=== PATIENT | male | born 1945 | race Caucasian/White ===

== ENCOUNTER 2016-04-25 12:30 | Inpatient (IN) | payer MEDICARE, MEDICAID ==
[~2016-04-25] VITALS: Ht 165.1 cm; Wt 88.7 kg
[2016-04-25 14:08] LABS: HEMOGLOBIN 11.3 gm/dl (14.0-17.5); RED BLOOD COUNT 3.76 M/UL (4.20-5.50); WHITE BLOOD COUNT 8.1 K/UL (4.5-11.0)
[2016-04-26] MEDS ORDERED: ASPIRIN CHEWABL81 MG PO (01:33)
[2016-04-26] MEDS ORDERED: COREG 25MG TAB25 MG PO (01:34)
[2016-04-26] MEDS ORDERED: LOSARTAN POTASS25 MG PO (01:34)
[2016-04-26] MEDS ORDERED: NEURONTIN 300300 MG PO (01:34)
[2016-04-26] MEDS ORDERED: IMDUR ER TAB 6060 MG PO (01:34)
[2016-04-26] MEDS ORDERED: PLAVIX 75 MG TA75 MG PO (01:35)
[2016-04-26] MEDS ORDERED: LIPITOR TAB 1010 MG PO (01:35)
[2016-04-26] MEDS ORDERED: JANUVIA 100 MG100 MG PO (01:36)
[2016-04-26] MEDS ORDERED: RANEXA1000 MG PO (01:36)
[2016-04-26] MEDS ORDERED: LANOXIN TAB0.125 MG PO (01:36)
[2016-04-26] MEDS ORDERED: LANTUS SOL100 UNIT/1 SQ (01:37)
[2016-04-26] MEDS ORDERED: NOVOLOG 10100 UNITS/ SQ (01:37)
[2016-04-26] MEDS ORDERED: LASIX 40 MG TAB40 MG PO (01:38)
[2016-04-26] MEDS ORDERED: PRILOSEC OTC20 MG PO (01:38)
[2016-04-26] MEDS ORDERED: VENTOLIN HFA 66.7 GM INH (01:39)
[2016-04-26] MEDS ORDERED: ALBUTEROL0.63 MG/3 INH (01:40)
[2016-04-26] MEDS ORDERED: NITROSTAT 0.4100 TAB SL (01:41)
[2016-04-27 04:58] LABS: HEMOGLOBIN 10.2 gm/dl (14.0-17.5); RED BLOOD COUNT 3.43 M/UL (4.20-5.50); WHITE BLOOD COUNT 6.5 K/UL (4.5-11.0)
--- NOTE | 2016-04-28 16:14 | NUR ---
REPORTED TO DR. SHETH PATIENT COMPLAINTS OF C/P, VITAL SIGNS WNL AND WITH RELIEF OF 1 PILL OF NITRO SL. ACKNOWLEDGED BUT WANTED TO BE NOTIFIED IF ANOTHER PATIENT WILL CONTINUE TO HAVE CHEST PAIN.
[2016-04-29 05:36] LABS: HEMOGLOBIN 10.6 gm/dl (14.0-17.5); RED BLOOD COUNT 3.53 M/UL (4.20-5.50); WHITE BLOOD COUNT 6.5 K/UL (4.5-11.0)
[2016-04-29 16:57] LABS: HEMOGLOBIN 10.6 gm/dl (14.0-17.5); RED BLOOD COUNT 3.53 M/UL (4.20-5.50); WHITE BLOOD COUNT 6.6 K/UL (4.5-11.0)
[2016-04-30 03:51] LABS: HEMOGLOBIN 9.8 gm/dl (14.0-17.5); RED BLOOD COUNT 3.3 M/UL (4.20-5.50); WHITE BLOOD COUNT 7.3 K/UL (4.5-11.0)
[2016-04-30] MEDS ORDERED: PEPCID40 MG PO (12:29)
[2016-09-04] MEDS ORDERED: ENTRESTO PO (11:35)
[2016-09-04] MEDS ORDERED: BIAXIN500 MG PO (11:36)
[2016-09-04] MEDS ORDERED: HYDRALAZINE HCL25 MG PO (11:36)
[2016-09-04] MEDS ORDERED: PROTONIX40 MG PO (11:36)
[2016-09-04] MEDS ORDERED: AMOXICILLIN500 MG PO (11:37)
[2016-09-04] MEDS ORDERED: NORCO 5-325 TA1 EACH PO (11:38)
[2016-09-05] MEDS ORDERED: LEVAQUIN750 MG PO (13:46)
[2016-09-05] MEDS ORDERED: LANTUS100 UNIT/1 SQ (13:46)
== END 2016-04-30 13:04 | disposition home or self-care (01) | DRG 247 ==
LOC: ER1 12:30 → ZEROF 21:52 → M/S 21:52 → PROG CARE 04-27 15:19
PROVIDERS: Internal Medicine; Physician Assistant; Physician Assistant Surgical; Student in an Organized Health Care Education/Training Program; ADMIT Internal Medicine
PROC: B2111ZZ Fluoroscopy of Multiple Coronary Arteries using Low Osmolar Contrast (ICD-10-PCS; principal; 2016-04-29)
PROC: 027034Z Dilation of Coronary Artery, One Artery with Drug-eluting Intraluminal Device, Percutaneous Approach (ICD-10-PCS; principal; 2016-04-29)
PROC: 4A023N7 Measurement of Cardiac Sampling and Pressure, Left Heart, Percutaneous Approach (ICD-10-PCS; principal; 2016-04-29)
DX: I25.710 Atherosclerosis of autologous vein coronary artery bypass graft(s) with unstable angina pectoris (principal); I50.22 Chronic systolic (congestive) heart failure; I25.5 Ischemic cardiomyopathy; E11.22 Type 2 diabetes mellitus with diabetic chronic kidney disease; I12.9 Hypertensive chronic kidney disease with stage 1 through stage 4 chronic kidney disease, or unspecified chronic kidney disease; N18.3 Chronic kidney disease, stage 3 (moderate); I25.82 Chronic total occlusion of coronary artery; I73.9 Peripheral vascular disease, unspecified; D64.9 Anemia, unspecified; E78.5 Hyperlipidemia, unspecified; I27.2 Other secondary pulmonary hypertension; J44.9 Chronic obstructive pulmonary disease, unspecified; R06.02 Shortness of breath; G47.33 Obstructive sleep apnea (adult) (pediatric); Z87.891 Personal history of nicotine dependence; Z79.4 Long term (current) use of insulin; Z95.5 Presence of coronary angioplasty implant and graft; Z95.1 Presence of aortocoronary bypass graft; Z88.8 Allergy status to other drugs, medicaments and biological substances; Z79.82 Long term (current) use of aspirin; Z79.51 Long term (current) use of inhaled steroids; Z79.52 Long term (current) use of systemic steroids; Z79.899 Other long term (current) drug therapy
CPT/HCPCS: ECHO; 36415; 71020; 78452; 80048; 80053; 80061; 80162; 82550; 82553; 82962; 83036; 83874; 83880; 84484; 85025; 85027; 85347; 93005; 93017; 93306; 94640; 94664; 99285; A9502; C1725; C1769; C1874; C1887; C9600; G0378; J0461; J0583; J1644; J2250; J2785; J3010; J7030; J7040; Q9965

== ENCOUNTER 2016-05-13 17:47 | Inpatient (IN) | payer MEDICARE, MEDICAID ==
[~2016-05-13] VITALS: Ht 165.1 cm; Wt 91.3 kg
[~2016-05-13 17:47] MED LIST: ALBUTEROL0.63 MG/3 INH; ASPIRIN CHEWABL81 MG PO; COREG 25MG TAB25 MG PO; IMDUR ER TAB 6060 MG PO; JANUVIA 100 MG100 MG PO; LANOXIN TAB0.125 MG PO; LANTUS SOL100 UNIT/1 SQ; LASIX 40 MG TAB40 MG PO; LIPITOR TAB 1010 MG PO; LOSARTAN POTASS25 MG PO; NEURONTIN 300300 MG PO; NITROSTAT 0.4100 TAB SL; NOVOLOG 10100 UNITS/ SQ; PEPCID40 MG PO; PLAVIX 75 MG TA75 MG PO; PRILOSEC OTC20 MG PO; RANEXA1000 MG PO; VENTOLIN HFA 66.7 GM INH
[2016-05-13 19:34] LABS: HEMOGLOBIN 11.6 gm/dl (14.0-17.5); RED BLOOD COUNT 3.85 M/UL (4.20-5.50); WHITE BLOOD COUNT 8.4 K/UL (4.5-11.0)
[2016-05-14 05:32] LABS: HEMOGLOBIN 10.5 gm/dl (14.0-17.5); RED BLOOD COUNT 3.49 M/UL (4.20-5.50)
[2016-05-14 05:33] LABS: WHITE BLOOD COUNT 10.7 K/UL (4.5-11.0)
[2016-05-15 03:55] LABS: HEMOGLOBIN 9.9 gm/dl (14.0-17.5); RED BLOOD COUNT 3.34 M/UL (4.20-5.50); WHITE BLOOD COUNT 8.9 K/UL (4.5-11.0)
[2016-05-15 16:51] LABS: HEMOGLOBIN 9.9 gm/dl (14.0-17.5); RED BLOOD COUNT 3.31 M/UL (4.20-5.50); WHITE BLOOD COUNT 8.9 K/UL (4.5-11.0)
[2016-05-16 00:47] LABS: HEMOGLOBIN 9.5 gm/dl (14.0-17.5); RED BLOOD COUNT 3.16 M/UL (4.20-5.50); WHITE BLOOD COUNT 7.3 K/UL (4.5-11.0)
[2016-05-16 07:46] LABS: HEMOGLOBIN 9.2 gm/dl (14.0-17.5); RED BLOOD COUNT 3.02 M/UL (4.20-5.50)
[2016-05-17 03:50] LABS: HEMOGLOBIN 8.4 gm/dl (14.0-17.5); RED BLOOD COUNT 2.82 M/UL (4.20-5.50); WHITE BLOOD COUNT 5.6 K/UL (4.5-11.0)
[2016-09-04] MEDS ORDERED: ENTRESTO PO (11:35)
[2016-09-04] MEDS ORDERED: PROTONIX40 MG PO (11:36)
[2016-09-04] MEDS ORDERED: BIAXIN500 MG PO (11:36)
[2016-09-04] MEDS ORDERED: HYDRALAZINE HCL25 MG PO (11:36)
[2016-09-04] MEDS ORDERED: AMOXICILLIN500 MG PO (11:37)
[2016-09-04] MEDS ORDERED: NORCO 5-325 TA1 EACH PO (11:38)
[2016-09-05] MEDS ORDERED: LEVAQUIN750 MG PO (13:46)
[2016-09-05] MEDS ORDERED: LANTUS100 UNIT/1 SQ (13:46)
== END 2016-05-17 18:11 | disposition home or self-care (01) | DRG 271 ==
LOC: ER1 17:47 → PROG CARE 23:00 → ZEROF 23:00 → PROG CARE 05-14 21:21
PROVIDERS: Internal Medicine; Internal Medicine Infectious Disease; Physician Assistant; ADMIT Internal Medicine
PROC: 4A023N7 Measurement of Cardiac Sampling and Pressure, Left Heart, Percutaneous Approach (ICD-10-PCS; principal; 2016-05-14)
PROC: B2151ZZ Fluoroscopy of Left Heart using Low Osmolar Contrast (ICD-10-PCS; 2016-05-14)
PROC: B2111ZZ Fluoroscopy of Multiple Coronary Arteries using Low Osmolar Contrast (ICD-10-PCS; 2016-05-14)
PROC: B2121ZZ Fluoroscopy of Single Coronary Artery Bypass Graft using Low Osmolar Contrast (ICD-10-PCS; 2016-05-14)
PROC: 04CL3ZZ Extirpation of Matter from Left Femoral Artery, Percutaneous Approach (ICD-10-PCS; 2016-05-15)
PROC: 047L3Z1 Dilation of Left Femoral Artery using Drug-Coated Balloon, Percutaneous Approach (ICD-10-PCS; 2016-05-15)
PROC: B41D1ZZ Fluoroscopy of Aorta and Bilateral Lower Extremity Arteries using Low Osmolar Contrast (ICD-10-PCS; 2016-05-15)
DX: I21.4 Non-ST elevation (NSTEMI) myocardial infarction (principal); N17.9 Acute kidney failure, unspecified; I13.0 Hypertensive heart and chronic kidney disease with heart failure and stage 1 through stage 4 chronic kidney disease, or unspecified chronic kidney disease; I50.22 Chronic systolic (congestive) heart failure; I25.110 Atherosclerotic heart disease of native coronary artery with unstable angina pectoris; I25.720 Atherosclerosis of autologous artery coronary artery bypass graft(s) with unstable angina pectoris; I25.710 Atherosclerosis of autologous vein coronary artery bypass graft(s) with unstable angina pectoris; I70.212 Atherosclerosis of native arteries of extremities with intermittent claudication, left leg; N18.3 Chronic kidney disease, stage 3 (moderate); E87.5 Hyperkalemia; E11.65 Type 2 diabetes mellitus with hyperglycemia; E11.22 Type 2 diabetes mellitus with diabetic chronic kidney disease; I25.5 Ischemic cardiomyopathy; J44.9 Chronic obstructive pulmonary disease, unspecified; I27.2 Other secondary pulmonary hypertension; E78.5 Hyperlipidemia, unspecified; I65.22 Occlusion and stenosis of left carotid artery; I08.1 Rheumatic disorders of both mitral and tricuspid valves; D64.9 Anemia, unspecified; Z95.810 Presence of automatic (implantable) cardiac defibrillator; Z95.5 Presence of coronary angioplasty implant and graft; Z95.820 Peripheral vascular angioplasty status with implants and grafts; Z87.891 Personal history of nicotine dependence; Z79.4 Long term (current) use of insulin; Z79.84 Long term (current) use of oral hypoglycemic drugs; Z99.81 Dependence on supplemental oxygen; Z79.02 Long term (current) use of antithrombotics/antiplatelets; Z79.82 Long term (current) use of aspirin; Z79.899 Other long term (current) drug therapy; Z82.49 Family history of ischemic heart disease and other diseases of the circulatory system
CPT/HCPCS: 36245; 36415; 71010; 71250; 75630; 80048; 80053; 82550; 82553; 82803; 82962; 83605; 83874; 83880; 84484; 85025; 85027; 85347; 85379; 85610; 85730; 87040; 93005; 94640; 94664; 96372; 96374; 96375; 99291; C1714; C1769; C1887; C2623; J0583; J1644; J1815; J1817; J1940; J2250; J2270; J2930; J3010; J7030; J7040; Q9965

== ENCOUNTER → 2016-05-20 | Outpatient (CLI) | payer MEDICARE ==
[~2016-05-20] MED LIST changes: +AMOXICILLIN500 MG PO; +BIAXIN500 MG PO; +ENTRESTO PO; +HYDRALAZINE HCL25 MG PO; +LANTUS100 UNIT/1 SQ; +LEVAQUIN750 MG PO; +NORCO 5-325 TA1 EACH PO; +PROTONIX40 MG PO
[2016-05-20 12:13] LABS: HEMOGLOBIN 9.5 gm/dl (14.0-17.5); RED BLOOD COUNT 3.19 M/UL (4.20-5.50); WHITE BLOOD COUNT 6.7 K/UL (4.5-11.0)
== END ==
LOC: LAB 11:38
PROVIDERS: Internal Medicine
DX: Z01.810 Encounter for preprocedural cardiovascular examination (principal)
CPT/HCPCS: 36415; 80048; 85025; 85610; 85730; 93005

== ENCOUNTER 2016-05-22 08:48 | Outpatient (CLI) | payer MEDICARE ==
[~2016-05-22] VITALS: Ht 165.1 cm; Wt 91.0 kg
[~2016-05-22 08:48] MED LIST changes: -AMOXICILLIN500 MG PO; -BIAXIN500 MG PO; -ENTRESTO PO; -HYDRALAZINE HCL25 MG PO; -LANTUS100 UNIT/1 SQ; -LEVAQUIN750 MG PO; -NORCO 5-325 TA1 EACH PO; -PROTONIX40 MG PO
[2016-05-23 00:20] LABS: HEMOGLOBIN 9.8 gm/dl (14.0-17.5); RED BLOOD COUNT 3.33 M/UL (4.20-5.50); WHITE BLOOD COUNT 8.3 K/UL (4.5-11.0)
[2016-05-23 06:47] LABS: HEMOGLOBIN 8.9 gm/dl (14.0-17.5); RED BLOOD COUNT 3.02 M/UL (4.20-5.50); WHITE BLOOD COUNT 6.3 K/UL (4.5-11.0)
[2016-05-23 07:36] LABS: BUN/CREATININE RATIO 18 (0-10)
[2016-09-04] MEDS ORDERED: ENTRESTO PO (11:35)
[2016-09-04] MEDS ORDERED: BIAXIN500 MG PO (11:36)
[2016-09-04] MEDS ORDERED: HYDRALAZINE HCL25 MG PO (11:36)
[2016-09-04] MEDS ORDERED: PROTONIX40 MG PO (11:36)
[2016-09-04] MEDS ORDERED: AMOXICILLIN500 MG PO (11:37)
[2016-09-04] MEDS ORDERED: NORCO 5-325 TA1 EACH PO (11:38)
[2016-09-05] MEDS ORDERED: LANTUS100 UNIT/1 SQ (13:46)
[2016-09-05] MEDS ORDERED: LEVAQUIN750 MG PO (13:46)
== END 2016-05-23 11:25 | disposition home or self-care (01) ==
LOC: CATH 08:48 → PROG CARE 08:48 → CATH 10:00 → MED SURG 4 16:00 → PROG CARE 21:26 → CATH 05-23 11:25
PROVIDERS: Internal Medicine
DX: I70.212 Atherosclerosis of native arteries of extremities with intermittent claudication, left leg (principal); I13.0 Hypertensive heart and chronic kidney disease with heart failure and stage 1 through stage 4 chronic kidney disease, or unspecified chronic kidney disease; I50.43 Acute on chronic combined systolic (congestive) and diastolic (congestive) heart failure; N18.2 Chronic kidney disease, stage 2 (mild); E11.22 Type 2 diabetes mellitus with diabetic chronic kidney disease; I25.10 Atherosclerotic heart disease of native coronary artery without angina pectoris; I25.5 Ischemic cardiomyopathy; I65.29 Occlusion and stenosis of unspecified carotid artery; I44.7 Left bundle-branch block, unspecified; I25.2 Old myocardial infarction; Z95.1 Presence of aortocoronary bypass graft; Z95.810 Presence of automatic (implantable) cardiac defibrillator; Z95.5 Presence of coronary angioplasty implant and graft; J44.9 Chronic obstructive pulmonary disease, unspecified; E11.42 Type 2 diabetes mellitus with diabetic polyneuropathy; H04.129 Dry eye syndrome of unspecified lacrimal gland; Z79.899 Other long term (current) drug therapy; K64.4 Residual hemorrhoidal skin tags; E78.00 Pure hypercholesterolemia, unspecified; K64.8 Other hemorrhoids; G47.34 Idiopathic sleep related nonobstructive alveolar hypoventilation; Z87.891 Personal history of nicotine dependence; G47.33 Obstructive sleep apnea (adult) (pediatric); H40.009 Preglaucoma, unspecified, unspecified eye; H25.10 Age-related nuclear cataract, unspecified eye; Z98.62 Peripheral vascular angioplasty status; Z79.82 Long term (current) use of aspirin; Z79.4 Long term (current) use of insulin
CPT/HCPCS: 36415; 71010; 80048; 82962; 85027; 85347; 93005; 94640; 94664; C1769; C1876; C1887; C1894; J0461; J1644; J1940; J2250; J2270; J3010; J7030; Q9965

== ENCOUNTER 2016-06-01 20:54 | Emergency (ER) | payer MEDICARE ==
[2016-06-01 23:08] LABS: HEMOGLOBIN 11.5 gm/dl (14.0-17.5); RED BLOOD COUNT 3.89 M/UL (4.20-5.50); WHITE BLOOD COUNT 8.8 K/UL (4.5-11.0)
[2016-09-04] MEDS ORDERED: ENTRESTO PO (11:35)
[2016-09-04] MEDS ORDERED: BIAXIN500 MG PO (11:36)
[2016-09-04] MEDS ORDERED: HYDRALAZINE HCL25 MG PO (11:36)
[2016-09-04] MEDS ORDERED: PROTONIX40 MG PO (11:36)
[2016-09-04] MEDS ORDERED: AMOXICILLIN500 MG PO (11:37)
[2016-09-04] MEDS ORDERED: NORCO 5-325 TA1 EACH PO (11:38)
[2016-09-05] MEDS ORDERED: LANTUS100 UNIT/1 SQ (13:46)
[2016-09-05] MEDS ORDERED: LEVAQUIN750 MG PO (13:46)
== END 2016-06-02 02:39 | disposition home or self-care (01) ==
LOC: ER1 20:54
PROVIDERS: Student in an Organized Health Care Education/Training Program
DX: I50.9 Heart failure, unspecified (principal); I48.91 Unspecified atrial fibrillation; E11.9 Type 2 diabetes mellitus without complications; I10 Essential (primary) hypertension; J44.9 Chronic obstructive pulmonary disease, unspecified; Z87.891 Personal history of nicotine dependence
CPT/HCPCS: 36415; 71020; 80053; 80162; 82550; 82553; 83874; 83880; 84484; 85025; 85610; 85730; 93005; 96374; 99285; J1940

== ENCOUNTER → 2016-06-06 | Outpatient (CLI) | payer MEDICARE ==
[~2016-06-06] MED LIST changes: +AMOXICILLIN500 MG PO; +BIAXIN500 MG PO; +ENTRESTO PO; +HYDRALAZINE HCL25 MG PO; +LANTUS100 UNIT/1 SQ; +LEVAQUIN750 MG PO; +NORCO 5-325 TA1 EACH PO; +PROTONIX40 MG PO
== END ==
LOC: US 13:43
DX: Z01.818 Encounter for other preprocedural examination (principal); I73.9 Peripheral vascular disease, unspecified; R93.8 Abnormal findings on diagnostic imaging of other specified body structures
CPT/HCPCS: 93926

== ENCOUNTER → 2016-06-12 | Outpatient (CLI) | payer MEDICARE | LOC: US 09:00 | DX: I79.0 Aneurysm of aorta in diseases classified elsewhere (principal); R14.0 Abdominal distension (gaseous); K82.8 Other specified diseases of gallbladder | CPT/HCPCS: 76700 ==

== ENCOUNTER → 2016-06-21 | Outpatient (CLI) | payer MEDICARE | LOC: LAB 09:01 | PROVIDERS: Internal Medicine Cardiovascular Disease | DX: I50.9 Heart failure, unspecified (principal) | CPT/HCPCS: 36415; 80048 ==

== ENCOUNTER → 2016-11-05 | Outpatient (CLI) | payer MEDICARE ==
[~2016-11-05] VITALS: Ht 165.1 cm; Wt 89.4 kg
== END ==
LOC: OPSV 08:43
DX: I10 Essential (primary) hypertension (principal)
CPT/HCPCS: G0463